=== PATIENT | male | born 1945 | race Caucasian/White ===

== ENCOUNTER 2016-12-25 08:19 | Emergency (ER) | payer OTHER ==
[~2016-12-25] VITALS: Ht 165.1 cm; Wt 93.8 kg
[2016-12-25] MEDS ORDERED: ANXIETY (08:39)
[2016-12-25 09:45] LABS: HEMATOCRIT 49.4 % (38.0-50.0); MCH 31.7 PG (29.0-34.0); MCHC 33.6 G/DL (30.0-36.0); MCV 94.5 FL (86-99); MEAN PLAT.VOLUME 9.7 uM^3 (9.0-12.4); PLATELET COUNT 223 K/uL (156-360); RBC DIS.WIDTH-SD 45.1 % (39-53); RED BLOOD COUNT 5.23 M/uL (4.00-5.50); WHITE BLOOD COUNT 6.5 K/uL (4.1-10.2)
[2016-12-25 09:49] LABS: ADD MIUA? NO; BILIRUBIN NEGATIVE; BLOOD NEGATIVE; COLOR AMBER ((YELLOW)); GLUCOSE (STRIP) NEGATIVE; KETONES 5; LEUKOCYTES NEGATIVE; NITRITE NEGATIVE; PROTEIN (STRIP) 30; SPECIFIC GRAVITY 1.029 (1.000-1.030); UCUL ADDED? NO
[2016-12-25 09:58] LABS: CHLORIDE 107 mEq/L (99-109); POTASSIUM 4.1 mEq/L (3.7-5.4); SODIUM 142 mEq/L (136-147)
[2016-12-25 10:01] LABS: GLUCOSE 103 mg/dL (70-99)
[2016-12-25 10:02] LABS: ANION GAP 9 MEQ/L (2-14)
[2016-12-25 10:04] LABS: ALKALINE PHOSPHATASE 92 IU/L (3-129); GFR ESTIMATE (CALCULATED) > 59 mL/min/
[2016-12-25 10:06] LABS: UREA NITROGEN (BUN) 17 mg/dL (9-23)
[2016-12-25] MEDS ORDERED: FLEXERIL10 MG PO (10:40)
[2016-12-25] MEDS ORDERED: NAPROSYN500 MG PO (10:40)
[2016-12-25] MEDS ORDERED: TRAMADOL HCL50 MG PO (10:40)
[2016-12-25 10:51] VITALS: BP 128/87
== END 2016-12-25 10:51 | disposition home or self-care (01) ==
LOC: EME 08:19
PROVIDERS: Nurse Practitioner Family
DX: S39.011A Strain of muscle, fascia and tendon of abdomen, initial encounter (principal); X50.0XXA Overexertion from strenuous movement or load, initial encounter; Y99.0 Civilian activity done for income or pay; F41.9 Anxiety disorder, unspecified; Z87.891 Personal history of nicotine dependence
CPT/HCPCS: 80053; 81003; 85027; 99281; 99284